=== PATIENT | male | born 2000 | race Caucasian/White ===

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

== ENCOUNTER 2022-04-18 19:12 | Emergency (ER) | payer OTHER ==
[2022-04-18 19:17] VITALS: BP 131/83; TEMP 99; BMI 39.6
[2022-04-18] MEDS ORDERED: ALBUTEROL SO4 2.5/IPRATROPIUM 0.5 INH SOL 3 ML VIAL.NEB. NEB ONE ×2 (19:24→20:02)
[2022-04-18] MEDS: ALBUTEROL SO4 2.5/IPRATROPIUM 0.5 INH SOL 3 ML VIAL.NEB. NEB SCH ×2 (19:28→20:05)
[2022-04-18] MEDS ORDERED: predniSONE 20 MG TABLET (UD) ONE (19:45)
[2022-04-18] MEDS ORDERED: predniSONE 20 MG TABLET (UD) PO ONE (19:59)
[2022-04-18 20:33] VITALS: PULSE 98; RESP 20
== END 2022-04-18 20:30 | disposition home or self-care (01) ==
LOC: FER 19:12
PROC: 3E0F7GC Introduction of Other Therapeutic Substance into Respiratory Tract, Via Natural or Artificial Opening (ICD-10-PCS; principal; 2022-04-18)
DX: J45.901 Unspecified asthma with (acute) exacerbation (principal)
CPT/HCPCS: 99284-25; C9803-CS; U0003; U0005

== ENCOUNTER 2023-01-25 19:32 | Emergency (ER) | payer OTHER ==
[2023-01-25 19:45] VITALS: BP 137/88; PULSE 97; RESP 18; TEMP 97.8; BMI 36.5
[2023-01-25] MEDS ORDERED: IBUPROFEN 600 MG TABLET (FP) PO ONE (19:54)
[2023-01-25] MEDS ORDERED: KETOROLAC TROMETHAMINE 30 MG/1 ML VIAL IM ONE (19:56)
[2023-01-25] MEDS ORDERED: KETOROLAC TROMETHAMINE 30 MG/1 ML VIAL ONE (19:58)
== END 2023-01-25 20:19 | disposition home or self-care (01) ==
LOC: FER 19:32
PROC: 3E0233Z Introduction of Anti-inflammatory into Muscle, Percutaneous Approach (ICD-10-PCS; principal; 2023-01-25)
DX: S39.012A Strain of muscle, fascia and tendon of lower back, initial encounter (principal); M54.50 Low back pain, unspecified; X50.9XXA Other and unspecified overexertion or strenuous movements or postures, initial encounter; Y93.89 Activity, other specified
CPT/HCPCS: 99284-25